=== PATIENT | female | born 1965 | race Caucasian/White ===

== ENCOUNTER → 2017-01-03 | Outpatient (CLI) | payer BC ==
[~2017-01-03] MED LIST: CLARITIN10 MG PO; COLACE100 MG PO; CYMBALTA30 MG PO; ELAVIL25 MG PO; LYRICA 75MG CAP75 MG PO; PROTONIX40 MG PO; [UNRECOGNIZED DRUG - OTHER] PO
[2017-01-03 14:03] LABS: BASOPHIL # 0.1 K/uL (0.0-0.2); BASOPHIL % 0.7 %; EOSINOPHIL # 0.1 K/uL (0.0-0.5); EOSINOPHIL % 1.5 %; HEMATOCRIT 37.6 % (33.0-46.0); HEMOGLOBIN 12.4 g/dL (10.0-15.0); IMMATURE GRANULOCYTE % 0.3 %; LYMPHOCYTE # 1.3 K/uL (0.8-4.0); MCH 30.5 pg (27.0-34.0); MCV 92.6 fl (83.0-98.0); MONOCYTE # 0.5 K/uL (0.0-1.0); MONOCYTE % 6.3 %; MPV 9.6 fl (9.4-12.4); NEUTROPHIL # (ANC) 5.6 K/uL (1.8-7.8); NEUTROPHIL % 74.2 %; NRBC % 0 /100WBC (0-0.00); PLATELET COUNT 271 K/uL (150-450); RBC 4.06 M/uL (3.50-5.50); RDW-CV 14.6 % (11.9-14.6); WBC 7.6 K/uL (4.0-11.0)
[2017-01-03 14:18] LABS: ALBUMIN 3.9 gm/dL (3.5-5.0); AST 13 IU/L (10-40); CREATININE 0.8 mg/dL (0.5-1.1); ESTIMATED GFR (MDRD EQUATION) > 60
== END | disposition disaster alternative care site (69) ==
LOC: GLAB 13:09
PROVIDERS: Internal Medicine Rheumatology
DX: M06.9 Rheumatoid arthritis, unspecified (principal); Z79.899 Other long term (current) drug therapy

== ENCOUNTER → 2017-05-06 | Outpatient (CLI) | payer BC ==
[2017-05-06 11:38] LABS: BASOPHIL % 0.6 %; EOSINOPHIL # 0.3 K/uL (0.0-0.5); HEMATOCRIT 34.5 % (33.0-46.0); HEMOGLOBIN 11.5 g/dL (10.0-15.0); IMMATURE GRANULOCYTE % 0.3 %; LYMPHOCYTE # 1.7 K/uL (0.8-4.0); LYMPHOCYTE % 26.4 %; MCH 31.4 pg (27.0-34.0); MCHC 33.3 gm/dL (32.0-36.5); MCV 94.3 fl (83.0-98.0); MONOCYTE # 0.4 K/uL (0.0-1.0); MPV 8.9 fl (9.4-12.4); NEUTROPHIL # (ANC) 3.9 K/uL (1.8-7.8); NEUTROPHIL % 61.7 %; NRBC % 0 /100WBC (0-0.00); PLATELET COUNT 255 K/uL (150-450); RBC 3.66 M/uL (3.50-5.50); RDW-CV 13.4 % (11.9-14.6); WBC 6.3 K/uL (4.0-11.0)
[2017-05-06 11:52] LABS: ALBUMIN 3.4 gm/dL (3.5-5.0); AST 14 IU/L (10-40); CREATININE 0.7 mg/dL (0.5-1.1)
== END | disposition disaster alternative care site (69) ==
LOC: GLAB 11:18
PROVIDERS: Internal Medicine Rheumatology
DX: M06.4 Inflammatory polyarthropathy (principal)

== ENCOUNTER 2017-06-02 23:28 | Emergency (ER) | payer BC ==
--- NOTE | ~2017-06-02 | ER ---
PATIENT'S NAME: IVELISSE [facility]ONSO [facility] AGE: 51 Y [address] ROOM: [place] [id number] LOCATION: [facility] ADMIT DATE: 06/02/2017 ER/Outpatient Report DISCHARGE DATE: 06/03/2017 FAMILY PHYSICIAN: Cookie Wood MD ATTENDING PHYSICIAN: Tiago Joshua Time of Evaluation: 2340 hours. CHIEF COMPLAINT: Right side neck pain, shoulder pain. HISTORY OF PRESENT ILLNESS: The patient is a 51-year-old female, who presents to the emergency room complaining of right-side neck pain, right shoulder pain. Symptoms started 2 days ago. She states that she was seen at [facility] by Dr. Weaver today, was prescribed Valium. Shoulder x-ray was taken, which was reported as negative. She has developed a rash starting at the back of her neck and extending around her neck. MEDICAL ALLERGIES: Demerol, morphine, Phenergan, gabapentin. CURRENT MEDICATIONS: See copied list including the Valium. MEDICAL HISTORY: Includes inflammatory polyarthritis, elevated sedimentation rate, osteoarthritis multiple sites, history of cervical tension myalgia, fibromyalgia, chronic low back pain, restless legs syndrome, irritable bowel, chronic fatigue, history of hepatitis, history of asthma, and she does have a history of peptic ulcer. SOCIAL HISTORY: Nonsmoker. . present. REVIEW OF SYSTEMS: GENERAL: Today, no recent febrile illnesses. HEENT: Denies headache, visual changes, sore throat. NECK: Does complain of right-sided neck pain. It does radiate down her right arm. RESPIRATORY: No shortness of breath, cough. CARDIOVASCULAR: She has had no heart palpitations or chest pain or pressure. GASTROINTESTINAL: Negative. MUSCULOSKELETAL: Right shoulder and neck pain. PATIENT'S NAME: IVELISSE ALONSO [facility] AGE: 51 Y [address] ROOM: [place] [id number] LOCATION: [facility] ADMIT DATE: 06/02/2017 ER/Outpatient Report DISCHARGE DATE: 06/03/2017 FAMILY PHYSICIAN: Cookie Wood MD ATTENDING PHYSICIAN: Tiago Joshua PHYSICAL EXAMINATION: VITAL SIGNS: Her blood pressure is 133/85, her temperature is 98.6, her respiratory rate 16, pulse 91, O2 saturations 96%. GENERAL APPEARANCE: White female. She is alert and oriented. HEAD: Scalp is unremarkable. NECK: There is a rash that starts midline, extends around to the front. It does appear to follow the C3 dermatome. Right shoulder motion is somewhat limited. She has a good radial pulse. LUNGS: Clear. HEART: Regular rhythm. ASSESSMENT: 1. Right-side neck pain with rash, suspect possible herpes zoster infection. 2. Long history of inflammatory polyarthritis. 3. History of cervical tension myalgia. 4. Fibromyalgia. PLAN: Acute pain tonight. We did give her Toradol 60 mg IM. She was given 2 [place] here in the emergency room. We did start her on acyclovir 800 mg to take every 4 hours or 5 times a day for the next 10 days. She was also given a script for some [place] for pain 1 or 2 every 4 to 6 hours. Recommend she follow up with her primary care doctor if concerns. Handout given concerning the herpes zoster. BRYAN SAMUELS FOR MD LESLY HARRIS/darrell /[id number] d: 06/03/17 0213 t: 06/09/17 1217, OUTPATIENT REPORT
== END 2017-06-03 00:21 | disposition disaster alternative care site (69) ==
LOC: GMED 23:28
DX: M54.2 Cervicalgia (principal); R21 Rash and other nonspecific skin eruption; M79.7 Fibromyalgia; J45.909 Unspecified asthma, uncomplicated; K75.9 Inflammatory liver disease, unspecified; R70.0 Elevated erythrocyte sedimentation rate; G25.81 Restless legs syndrome; Z87.39 Personal history of other diseases of the musculoskeletal system and connective tissue; Z88.5 Allergy status to narcotic agent; Z88.6 Allergy status to analgesic agent; Z88.8 Allergy status to other drugs, medicaments and biological substances; Z79.891 Long term (current) use of opiate analgesic
CPT/HCPCS: J1885